=== PATIENT | female | born 2000 | race Two or more races ===

== ENCOUNTER 2020-10-18 01:02 | Emergency (ER) | payer OTHER ==
[~2020-10-18] VITALS: Ht 154.9 cm; Wt 47.9 kg
[2020-10-18] MEDS ORDERED: SODIUM CHLORIDE 0.9% 1,000ML IVBOLUS ONE (02:00)
[2020-10-18 02:07] LABS: BASOPHILS % (AUTO) 1 % (0-1); EOSINOPHILS % (AUTO) 2 % (1-7); LYMPHOCYTES % (AUTO) 34 % (22-44); MEAN CORPUSCULAR HEMOGLOBIN 29.6 pg (27.0-34.8); MEAN CORPUSCULAR HGB CONC 33.4 g/dL (32.4-35.8); MEAN PLATELET VOLUME 8.3 fL (7.4-10.4); MONOCYTES % (AUTO) 9 % (2-9); NEUTROPHILS % (AUTO) 55 % (42-75); PLATELET COUNT 247 x10^3/uL (130-400); RED BLOOD COUNT 4.47 x10^6/uL (3.82-5.3); RED CELL DISTRIBUTION WIDTH 12.8 % (9.6-15.2)
[2020-10-18 02:14] LABS: ALANINE AMINOTRANSFERASE 24 U/L (12-78); ALBUMIN 3.9 g/dL (3.4-5.0); ANION GAP 4 mmol/L (5-15); CHLORIDE 109 mmol/L (98-107); CREATININE 0.74 mg/dL (0.55-1.02)
[2020-10-18 02:18] LABS: ALKALINE PHOSPHATASE 82 U/L (45-117); TOTAL PROTEIN 7.5 g/dL (6.4-8.2)
[2020-10-18 02:35] LABS: BILIRUBIN,TOTAL 0.2 mg/dL (0.2-1.0)
[2020-10-18] MEDS ORDERED: LEVETIRACETAM 500 MG in SODIUM CHLORIDE 0.9% 100 ML IV ONE (04:00)
[2020-10-18 04:50] VITALS: BP 107/54
[2020-10-18] MEDS ORDERED: KETOROLAC 30 MG/1 ML ONE (05:06)
[2020-10-18] MEDS ORDERED: KETOROLAC 30 MG/1 ML IVPush ONE (05:30)
== END 2020-10-18 05:38 | disposition home or self-care (01) ==
LOC: ED 05:02
DX: G40.319 Generalized idiopathic epilepsy and epileptic syndromes, intractable, without status epilepticus (principal); G43.C0 Periodic headache syndromes in child or adult, not intractable; Z72.820 Sleep deprivation; R55 Syncope and collapse
CPT/HCPCS: 36415; 70450; 80053; 80320; 84703; 85025; 93005; 96361; 96365; 99285; J1953; J7030; G0480